=== PATIENT | male | born 1955 | race Caucasian/White ===

== ENCOUNTER 2019-01-21 09:08 | Inpatient (IN) | payer MEDICARE ==
[~2019-01-21] VITALS: Ht 170.2 cm; Wt 90.0 kg
[~2019-01-21 09:08] MED LIST: ALBU2.5V8 IH; AMIO200T4 PO; AMOX500C PO; ASPI-630 PO; ATOR20TA58 PO; AZIT1PAC PO; BUDE10.2 IH; CEFP200T PO; CHLO25TA9 PO; FURO40TA4 PO; IPRA3AMP29 IH; LISI-338 PO; MAGN400T22 PO; METO25TA4 PO; NICO1PAT2 TP; POTA20TA4 PO; PRED-220 PO; TAMS0.4C2 PO; TORS20TA PO; WARF3TAB50 PO; WARF6TAB PO; ZOLP10TA PO; ZOLP5TAB PO
[2019-01-21] MEDS ORDERED: ONDANSETRON ODT 4 MG TAB.RAPDIS PO PRN (09:30)
[2019-01-21] MEDS ORDERED: IV NORMAL SALINE 1,000ML 1,000 ML IV SCH (09:30)
[2019-01-21] MEDS ORDERED: ACETAMINOPHEN 325 MG TABLET PO PRN (09:30)
[2019-01-21 10:06] VITALS: BP 133/75
[2019-01-21 10:13] LABS: BASO % 0 % (0-3); EOS % 0 % (0-3); HEMATOCRIT 48.1 % (39.0-53.0); LYMPH # 0.8 x10^3/uL (1.0-4.8); LYMPH % 6 % (24-48); MEAN CORPUSCULAR HEMOGLOBIN 27 pg (25-35); MEAN CORPUSCULAR HGB CONC 33 g/dL (31-37); MEAN CORPUSCULAR VOLUME 81 fL (79-100); MONO # 1.3 x10^3/uL (0.0-1.1); MONO % 9 % (0-9); NEUT # 12.3 x10^3uL (1.8-7.7); NEUT % 85 % (31-73); PLATELET COUNT 165 x10^3/uL (140-400); RED BLOOD COUNT 5.92 x10^6/uL (4.30-5.70); RED CELL DISTRIBUTION WIDTH 16.1 % (11.5-14.5); WHITE BLOOD COUNT 14.4 x10^3/uL (4.0-11.0)
[2019-01-21 10:29] LABS: ALBUMIN 3.5 g/dL (3.4-5.0); ALBUMIN/GLOBULIN RATIO 0.8 (1.0-1.7); CALCIUM 9.4 mg/dL (8.5-10.1); CREATININE 1.2 mg/dL (0.7-1.3); GFR 60.8; POTASSIUM 3.4 mmol/L (3.5-5.1); TOTAL BILIRUBIN 1.7 mg/dL (0.2-1.0); TOTAL PROTEIN 7.7 g/dL (6.4-8.2)
--- NOTE | 2019-01-21 10:57 | NUR ---
NSG NOTE; ADMISSION DIRECT ADMIT TO ROOM 113 AT 1000 VIA W/C FROM DR DOMINGUEZ'S OFFICE PT STATES HE GOT OVER HEATED ON SAT AND SUN, AND FELT WEAK, TIRED AND WITH A VICK SINCE THEN. THE OFFICE SENT HIM FOR ADMISSION AFTER NOTING SINUS TACHYCARDIA AND AN ABN EKG
[2019-01-21 11:37] LABS: BACTERIA,URINE 0 /HPF (0-FEW); BILIRUBIN,URINE NEG (NEG); CLARITY,URINE CLOUDY; COLOR,URINE AMBER; GLUCOSE,URINE >=1000 mg/dL (NEG); GRANULAR CASTS,URINE OCC /HPF; NITRITE,URINE NEG (NEG); RBC,URINE >40 /HPF (0-2); SQUAMOUS EPITHELIAL CELL,UR OCC /LPF; UROBILINOGEN,URINE 1 mg/dL (0.2 mg/dL)
[2019-01-21] MEDS ORDERED: ZOLPIDEM 5 MG TABLET. PO PRN (12:30)
[2019-01-21] MEDS ORDERED: DEXTROSE 50% 25 GM / 50ML DISP.SYRIN. IV PRN (12:45)
[2019-01-21] MEDS ORDERED: GLYB5TAB3 PO (13:41)
[2019-01-21] MEDS ORDERED: TRAM50TA PO (13:41)
[2019-01-21] MEDS ORDERED: TAMS0.4C97 PO (13:41)
[2019-01-21] MEDS ORDERED: DULA0.75 SQ (13:41)
[2019-01-21] MEDS: IV NORMAL SALINE 1,000ML 1,000 ML IV SCH ×2 (14:06→22:30)
--- NOTE | 2019-01-21 14:27 | NUR ---
NSG NOTE; INR GOAL: 2.5-3.5 PT HAS MECH HEART VALVES X2 01/21/19 INR 1.8- DR DOMINGUEZ NOTIFIED AND [place] [facility] ORDER GIVEN
[2019-01-21 14:30] VITALS: BP 129/64
--- NOTE | 2019-01-21 14:37 | NUR ---
Pharmacy Warfarin Dosing Note S:Pharmacy consulted to assist with anticoagulation therapy started with target INR: 2.5 - 3.5 O:STEFFI CABRERA is a 63 year old M with Mechanical Mitral Valve LABS: Last INR: 1.8 Last HGB: 16 Last HCT: 48.1 Last PLT: 165 Last dose of 6 mg given on 01/21/19 prior to admin Previous Regimen: Vitamin K given: N Drug Interaction Changes: Same Interacting Drug Ongoing Drug Interactions: A:INR Below desired Range. Target Range for this patient is: 2.5 - 3.5 P: Warfarin dose: 6mg daily for now, will monitor based on INR. Bridge Therapy: Enoxaparin 1 mg/kg q12h Next INR due 01/22/19 @0600 Pharmacy anticoagulation service will continue to follow. FAREED CONTE [facility], 01/21/19 [id number]
--- NOTE | 2019-01-21 16:06 | EKG ---
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
[2019-01-21] MEDS ORDERED: INSULIN LISPRO 300 UNITS/3 ML INSULN.PEN. SQ SCH (17:00)
--- NOTE | 2019-01-21 17:02 | RAD ---
EXAM: CT Abdomen and Pelvis without IV contrast CLINICAL HISTORY: Hematuria. COMPARISON: 10/03/2015 TECHNIQUE: Helical CT of the abdomen and pelvis without intravenous contrast. Axial, coronal and sagittal reformatted images were generated. PQRS compliance statement - One or more of the following individualized dose reduction techniques were utilized for this study: 1. Automated exposure control 2. Adjustment of the mA and/or kV according to patient size 3. Use of iterative reconstruction technique FINDINGS: Lack of intravenous contrast limits evaluation of solid organs, vasculature, and lymph nodes. Lower chest: Linear opacities in the lower lobes likely scarring/atelectasis. Right lower lobe calcified granuloma. Mitral annular calcifications. Abdomen and Pelvis: Liver measures 21.3 cm in length. Hepatic hypoattenuation may be seen with hepatic steatosis. Calcified gallstones are seen within the gallbladder. No biliary duct dilatation. Pancreas is unremarkable. Spleen is top normal in size measuring 11.9 cm in length. Adrenal glands are normal. Fat infiltration is seen about the left kidney and left ureter. These findings may be seen with pyelonephritis. No renal tract, or bladder calculus. Bladder wall thickening may be seen with cystitis. Foci of gas within the bladder are seen, can be correlated for possible recent instrumentation. Nodular appearance of the upper pole of the left kidney may represent a renal lesion or be physiologic, evaluation limited on this noncontrast exam. Moderate colonic stool content is seen. Appendix is normal. No small or large bowel dilatation. Colonic diverticulosis without evidence for acute diverticulitis. No abdominal or pelvic lymphadenopathy. Atherosclerotic calcifications of aorta are seen. Small fat-containing periumbilical hernia. Bones: SI joint degenerative changes are seen. Lower lumbar spine degenerative changes are seen. IMPRESSION: 1. No definite renal tract calculus. 2. Diffuse fat infiltration about the left kidney and left ureter may be seen with pyelonephritis. 3. Bladder wall thickening may be seen with cystitis. Foci of gas within the bladder may represent prior instrumentation/Lyle catheter although may be seen with infection. 4. Mild nodularity of the upper pole the left kidney is seen, evaluation limited on this noncontrast exam and although may be physiologic lobulation, underlying lesion is not excluded. Ultrasound or multiphase CT would provide additional details. 5. Hepatomegaly and hepatic steatosis. 6. Cholelithiasis without CT evidence for acute cholecystitis. Electronically signed by: Juni Almeida MD (01/21/2019 4:58 PM) [facility]
--- NOTE | 2019-01-21 17:33 | PDOC2 ---
CONSULT Date of Admission DATE: 01/21/19 TIME: 17:33 Reason for Consult: Tachycardia Referring Physician: Dr. Thorne Chief Complaint Headache Source: Chart review, Patient History of Present Illness 63-year-old male with history of aortic and mitral valve replacements in 2014 and paroxysmal atrial fibrillation usually followed by [facility] cardiology apparently got over heated from being out in sun for two consecutive days. He was seen in Dr. Thorne's office for headache and was found to be tachycardic and admitted for further evaluation. He denied any chest pain, orthopnea/PND, palpitations or syncope. 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 Past Medical History Paroxysmal atrial fibrillation DM-2 Hypertension Hyperlipidemia COPD Anxiety/depression Past Surgical History Tonsillectomy Aortic and mitral valve replacements Family History Negative for premature coronary artery disease Social History Patient is a nonsmoker and a nondrinker Current Medications Current Medications Sodium Chloride 1,000 ml @ 120 mls/hr Q8H20M IV ; Start 01/21/19 at 09:30; Stop 01/21/19 at 12:24; Status DC Ondansetron HCl (Zofran Odt) 4 mg PRN Q6HRS PRN PO NAUSEA/VOMITING; Start 01/21/19 at 09:30 Acetaminophen (Tylenol) 650 mg PRN Q6HRS PRN PO PAIN / TEMP; Start 01/21/19 at 09:30 Aspirin (Children'S Aspirin) 81 mg DAILY PO ; Start 01/22/19 at 09:00 Chlorthalidone (Thalitone) 25 mg DAILY PO ; Start 01/22/19 at 09:00 Chlorthalidone (Thalitone) 25 mg DAILY PO ; Start 01/22/19 at 09:00; Stop 01/21/19 at 12:21; Status DC Magnesium Oxide (Magnesium Oxide) 400 mg DAILY PO ; Start 01/22/19 at 09:00 Metoprolol Tartrate (Lopressor) 12.5 mg BID PO ; Start 01/21/19 at 21:00 Potassium Chloride (Klor-Con) 20 meq BID PO ; Start 01/21/19 at 21:00 Warfarin Sodium (Coumadin) 6 mg DAILY16 PO ; Start 01/22/19 at 16:00 Zolpidem Tartrate (Ambien) 5 mg PRN QHS PRN PO INSOMNIA, MR X1 WITHIN 2HRS; Start 01/21/19 at 12:30 Sodium Chloride 1,000 ml @ 100 mls/hr Q10H IV Last administered on 01/21/19at 14:06; Start 01/21/19 at 12:30 Insulin Human Lispro (HumaLOG) 0-7 UNITS TIDWMEALS SQ ; Start 01/21/19 at 17:00 Dextrose (Dextrose 50%-Water Syringe) 12.5 gm PRN Q15MIN PRN IV SEE COMMENTS; Start 01/21/19 at 12:45 Enoxaparin Sodium (Lovenox 100mg Syringe) 90 mg Q12HR SQ ; Start 01/21/19 at 21:00 Warfarin Sodium (Coumadin Per Pharmacy) 1 each PRN DAILY PRN MC SEE COMMENTS Last administered on 01/21/19at 14:37; Start 01/21/19 at 14:45 Active Scripts Active Reported Trulicity (Dulaglutide) 0.75 Mg/0.5 Ml Pen.injctr 0.75 Mg SQ WEEKLYSUNDAY Flomax (Tamsulosin Hcl) 0.4 Mg Cap.er.24h 1 Tab PO HS Tramadol Hcl (Tramadol HCl) 50 Mg Tablet 1 Tab PO Q6HRS PRN Glyburide 5 Mg Tablet 1 Tab PO DAILY Aspirin 81 Mg Tab.chew 81 Mg PO DAILY Coumadin (Warfarin Sodium) 6 Mg Tablet 1 Tab PO DAILY Chlorthalidone (Chlorthalidone) 25 Mg Tablet 1 Tab PO DAILY Metoprolol Tartrate 25 Mg Tablet 12.5 Mg PO BID LAST DOSE GIVEN: DATE: TIME: NEXT DOSE DUE: DATE: TIME: Klor-Con M20 (Potassium Chloride) 20 Meq Tab.er.prt 1 Tab PO BID LAST DOSE GIVEN: DATE: TIME: NEXT DOSE DUE: DATE: TIME: Allergies: Coded Allergies: penicillin (Verified Allergy, Unknown, Hives, 04/01/15) hives & throat swells PSYCHOLOGICAL ROS: No: Hallucinations Eyes: No: Loss of vision HEENT: YES: Heacaches; No: Epistaxis Respiratory: No: Hemoptysis Cardiovascular: No: Chest Pain Gastrointestinal: No: Vomiting, Diarrhea Neurological: No: Seizures Skin: No: Rash General: Alert, Oriented X3 HEENT: Atraumatic, PERRLA Lungs: Clear to auscultation Heart: Regular rate, Other (tachycardic) Abdomen: Soft, No tenderness Extremities: No edema Psych/Mental Status: Mood NL VITALS Vital Signs Date Time Temp Pulse Resp B/P (MAP) Pulse Ox O2 Delivery O2 Flow Rate FiO2 01/21/19 14:30 98.1 115 20 129/64 (85) 93 Room Air Labs Laboratory Tests Test 01/21/19 10:06 01/21/19 11:00 01/21/19 11:47 01/21/19 12:57 White Blood Count 14.4 x10^3/uL (4.0-11.0) Red Blood Count 5.92 x10^6/uL (4.30-5.70) Hemoglobin 16.0 g/dL (13.0-17.5) Hematocrit 48.1 % (39.0-53.0) Mean Corpuscular Volume 81 fL (79-100) Mean Corpuscular Hemoglobin 27 pg (25-35) Mean Corpuscular Hemoglobin Concent 33 g/dL (31-37) Red Cell Distribution Width 16.1 % (11.5-14.5) Platelet Count 165 x10^3/uL (140-400) Neutrophils (%) (Auto) 85 % (31-73) Lymphocytes (%) (Auto) 6 % (24-48) Monocytes (%) (Auto) 9 % (0-9) Eosinophils (%) (Auto) 0 % (0-3) Basophils (%) (Auto) 0 % (0-3) Neutrophils # (Auto) 12.3 x10^3uL (1.8-7.7) Lymphocytes # (Auto) 0.8 x10^3/uL (1.0-4.8) Monocytes # (Auto) 1.3 x10^3/uL (0.0-1.1) Eosinophils # (Auto) 0.0 x10^3/uL (0.0-0.7) Basophils # (Auto) 0.0 x10^3/uL (0.0-0.2) Prothrombin Time 18.2 SEC (9.4-11.4) Prothromb Time International Ratio 1.8 (0.9-1.1) D-Dimer (Phoebe) 0.38 mg/L (0.00-0.50) Sodium Level 132 mmol/L (136-145) Potassium Level 3.4 mmol/L (3.5-5.1) Chloride Level 94 mmol/L (98-107) Carbon Dioxide Level 29 mmol/L (21-32) Anion Gap 9 (6-14) Blood Urea Nitrogen 18 mg/dL (8-26) Creatinine 1.2 mg/dL (0.7-1.3) Estimated GFR (Cockcroft-Gault) 60.8 BUN/Creatinine Ratio 15 (6-20) Glucose Level 272 mg/dL (70-99) Calcium Level 9.4 mg/dL (8.5-10.1) Total Bilirubin 1.7 mg/dL (0.2-1.0) Aspartate Amino Transf (AST/SGOT) 16 U/L (15-37) Alanine Aminotransferase (ALT/SGPT) 27 U/L (16-63) Alkaline Phosphatase 67 U/L (46-116) Creatine Kinase 38 U/L (39-308) Troponin I Quantitative < 0.017 ng/mL (0-0.055) < 0.017 ng/mL (0-0.055) Total Protein 7.7 g/dL (6.4-8.2) Albumin 3.5 g/dL (3.4-5.0) Albumin/Globulin Ratio 0.8 (1.0-1.7) Urine Collection Type Unknown Urine Color Arielle Urine Clarity Cloudy Urine pH 6.5 Urine Specific [place] 1.010 Urine Protein 100 mg/dl (NEG-TRACE) Urine Glucose (UA) >=1000 mg/dL (NEG) Urine Ketones (Stick) Neg mg/dL (NEG) Urine Blood Large (NEG) Urine Nitrite Neg (NEG) Urine Bilirubin Neg (NEG) Urine Urobilinogen Dipstick 1 mg/dL (0.2 mg/dL) Urine Leukocyte Esterase Neg (NEG) Urine RBC >40 /HPF (0-2) Urine WBC 1-4 /HPF (0-4) Urine Squamous Epithelial Cells Occ /LPF Urine Bacteria 0 /HPF (0-FEW) Urine Granular Casts Occ /HPF Glucose (Fingerstick) 239 mg/dL (70-99) Test 01/21/19 16:25 01/21/19 16:59 Troponin I Quantitative < 0.017 ng/mL (0-0.055) Glucose (Fingerstick) 132 mg/dL (70-99) Assessment/Plan 1. Sinus tachycardia most probably secondary to dehydration and hyperthermia on admission. Continue intravenous fluids. Check 2-D echo for further evaluation. Continue beta blockers. 2. s/p aortic and mitral valve replacements, most probably mechanical. Check 2- D echo for valve function. 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 3. Paroxysmal atrial fibrillation, s/p cardioversion in the past. He is presently in sinus rhythm. Adjust warfarin dose for therapeutic INR. 4. Hypertension: Controlled 5. Diabetes mellitus type 2: Treat per IM Thank you for your consultation RALEIGH MCLAIN MD Jan 21, 2019 17:33
[2019-01-21 19:23] VITALS: BP 148/70
[2019-01-21] MEDS: INSULIN LISPRO 300 UNITS/3 ML INSULN.PEN. SQ SCH (21:00)
[2019-01-21] MEDS: METOPROLOL TART IMMED RELEASE 25 MG TABLET PO SCH (21:15)
[2019-01-21] MEDS: ENOXAPARIN ** NOTE DOSE ** SYRINGE SQ SCH (21:15)
[2019-01-21] MEDS: POTASSIUM CHLORIDE 20 MEQ TABLET.ER. PO SCH (21:18)
--- NOTE | 2019-01-21 22:03 | RAD ---
CT head without contrast PQRS statement: CT scans at this facility use dose reduction including either automated exposure control, iterative reconstructions, and /or weight based radiation dosing via mA and kV modification when appropriate to reduce radiation dose to as low as reasonably achievable. HISTORY: Headache. TECHNIQUE: Noncontrast CT imaging of the head skull base to vertex acquired. FINDINGS: Mild generalized brain atrophy. No intracranial hemorrhage, mass, hydrocephalus, extra-axial fluid collections or infarction. No acute ischemic changes. Orbits, mastoids, paranasal sinuses and bones are unremarkable. IMPRESSION: No acute intracranial CT abnormality. Electronically signed by: Ryan Whitmore MD (01/21/2019 10:00 PM) [facility]
[2019-01-21 23:29] VITALS: BP 104/64
[2019-01-22] MEDS: IV NORMAL SALINE 1,000ML 1,000 ML IV SCH ×3 (00:47→18:30)
[2019-01-22 05:39] VITALS: BP 138/66
[2019-01-22 06:40] LABS: CALCIUM 8.6 mg/dL (8.5-10.1); CREATININE 0.8 mg/dL (0.7-1.3); POTASSIUM 3.1 mmol/L (3.5-5.1)
[2019-01-22 06:48] LABS: BASO # 0.1 x10^3/uL (0.0-0.2); BASO % 1 % (0-3); EOS # 0.1 x10^3/uL (0.0-0.7); EOS % 1 % (0-3); HEMATOCRIT 43.2 % (39.0-53.0); HEMOGLOBIN 14.8 g/dL (13.0-17.5); LYMPH % 9 % (24-48); MEAN CORPUSCULAR HEMOGLOBIN 27 pg (25-35); MEAN CORPUSCULAR HGB CONC 34 g/dL (31-37); MEAN CORPUSCULAR VOLUME 80 fL (79-100); MONO # 1.3 x10^3/uL (0.0-1.1); MONO % 12 % (0-9); NEUT # 8.3 x10^3uL (1.8-7.7); NEUT % 78 % (31-73); PLATELET COUNT 153 x10^3/uL (140-400); RED BLOOD COUNT 5.39 x10^6/uL (4.30-5.70); RED CELL DISTRIBUTION WIDTH 15.8 % (11.5-14.5); WHITE BLOOD COUNT 10.7 x10^3/uL (4.0-11.0)
[2019-01-22] MEDS: INSULIN LISPRO 300 UNITS/3 ML INSULN.PEN. SQ SCH ×4 (07:30→21:00)
[2019-01-22] MEDS ORDERED: CHLORTHALIDONE 25 MG TABLET PO SCH (09:00)
[2019-01-22] MEDS: CHLORTHALIDONE 25 MG TABLET PO SCH (09:00)
[2019-01-22] MEDS: ENOXAPARIN ** NOTE DOSE ** SYRINGE SQ SCH ×2 (09:00→21:00)
[2019-01-22] MEDS: MAGNESIUM OXIDE 400 MG TABLET PO SCH (09:00)
[2019-01-22] MEDS: ASPIRIN 81 MG TAB.CHEW PO SCH (09:00)
[2019-01-22] MEDS: METOPROLOL TART IMMED RELEASE 25 MG TABLET PO SCH ×2 (09:00→21:44)
[2019-01-22] MEDS: POTASSIUM CHLORIDE 20 MEQ TABLET.ER. PO SCH ×2 (09:00→21:44)
[2019-01-22] MEDS ORDERED: ELECTROLYTE (ICU) PROTOCOL. MC PRN (09:00)
--- NOTE | 2019-01-22 09:29 | RAD ---
Chest, PA and Lateral: Technique: PA and lateral views of the chest were obtained. History: Weakness. Comparison: 08/16/2015. Findings: Mild cardiomegaly. Median sternotomy wires and valve prosthesis and atrial occlusion device are unchanged. Diffuse prominent appearing bilateral interstitial lung markings likely chronic interstitial changes. Mild bibasilar lung airspace opacities. Moderate degenerative changes thoracic spine. Impression: Diffuse prominent bilateral interstitial lung markings likely chronic interstitial changes similar to prior exam. Mild bibasilar lung airspace opacities likely atelectasis or infiltrates. Electronically signed by: Brodie Padgett MD (01/22/2019 9:26 AM) [facility]
[2019-01-22 10:45] VITALS: BP 146/77
[2019-01-22] MEDS ORDERED: POTASSIUM CHLORIDE 20 MEQ TABLET.ER. PO ONE (11:30)
[2019-01-22] MEDS: GENTAMICIN SULFATE 380 MG in IV NORMAL SALINE 100ML 100 ML IV SCH (11:35)
[2019-01-22] MEDS: GENTAMICIN PER PHARMACY MC PRN (13:24)
--- NOTE | 2019-01-22 13:24 | NUR ---
Pharmacy Aminoglycoside Dosing Note S: Consulted to monitor and dose Gentamicin started 01/22/19 O:STEFFI CABRERA is a 63 year old M with Pyelonephritis Height: 5 feet, 7 inches Weight: 91.715062 kg [place] Weight: 66.10 Adjusted Weight: 76.22 Dosing Weight:Adjusted LABS: BUN: 14 SCr:0.8 CrCl: 79.4 WBC: 10.7 Platelet: 153 Last dose given 01/22/19 at 1130 A: Dosage was calculated based on adjusted weight at 5mg/kg. P: 1. Begin Gentamicin 380mg IV q24h 2. Follow up random levels on 01/22/19 at 1930 3. Pharmacy will continue to monitor, follow and adjust therapy as needed. BANDAR MIRANDA [facility] 01/22/19 2520
--- NOTE | 2019-01-22 14:09 | NUR ---
Pharmacy Warfarin Dosing Note S:Pharmacy consulted to assist with anticoagulation therapy started with target INR: 2.5 - 3.5 O:STEFFI CABRERA is a 63 year old M with Mechanical Mitral Valve LABS: Last INR: 1.7 Last HGB: 16 Last HCT: 48.1 Last PLT: 153 Last dose of 6 mg given on 01/21/19 at 1600 Previous Regimen: Home dose was 6mg daily Vitamin K given: N Drug Interaction Changes: Levaquin A:INR is below the desired range. Target Range for this patient is: 2.5 - 3.5 P: Warfarin dose: Coumadin 10mg po today at 1600 Bridge Therapy: Enoxaparin 1 mg/kg q12h Next INR due 01/23/19 Pharmacy anticoagulation service will continue to follow. BANDAR MIRANDA [facility] 01/22/19 7910
[2019-01-22 15:39] VITALS: BP 121/72
[2019-01-22] MEDS ORDERED: WARFARIN 6 MG TABLET. PO SCH (16:00)
[2019-01-22] MEDS ORDERED: WARFARIN 10 MG TABLET. PO ONE (16:00)
[2019-01-22 19:25] VITALS: BP 133/68
[2019-01-22] MEDS ORDERED: GENTAMICIN RANDOM LEVEL. MC ONE (19:30)
[2019-01-22] MEDS: LACTOBACILLUS RHAMNOSUS GG 1 CAPSULE. PO SCH (21:44)
[2019-01-22 23:06] VITALS: BP 124/74
[2019-01-23 00:07] LABS: HEMOGLOBIN A1C 7.1 % (4.8-5.6)
[2019-01-23] MEDS: IV NORMAL SALINE 1,000ML 1,000 ML IV SCH (02:06)
--- NOTE | 2019-01-23 05:41 | PN ---
DATE: 01/22/2019 SUBJECTIVE: A 63-year-old male in with fever, chills, elevated white count, although he had a negative lactic acid. He did have a lot of blood in his urine and a CT scan of the abdomen and pelvis demonstrated a situation of bladder wall thickening as well as possible pyelonephritis. The patient says he is feeling a little better. The patient otherwise will continue on Levaquin and Rocephin and we will await for culture reports to be returned. OBJECTIVE: VITAL SIGNS: Blood pressure 138/66, respiratory rate 18, pulse 113, temperature upwards of 100.1. LUNGS: Clear. CARDIOVASCULAR: Stable. ABDOMEN: Soft. There is definite tenderness in the left flank area and down the left ureter. IMPRESSION: Pyelonephritis and cystitis. He has a history of heart valve replacement and we will continue to monitor him accordingly. PLAN: We will go ahead and continue to monitor him and put him on some IV antibiotics until we can get the culture back. CANDIDO DOMINGUEZ MD DR: ARABELLA/john JOB#: [id number] / [id number]
[2019-01-23 06:15] VITALS: BP 122/80
[2019-01-23] MEDS: INSULIN LISPRO 300 UNITS/3 ML INSULN.PEN. SQ SCH ×2 (07:30→11:30)
[2019-01-23] MEDS ORDERED: ELECTROLYTE (NON-ICU) PROTOCOL MC PRN (09:15)
[2019-01-23] MEDS ORDERED: POTASSIUM CHLORIDE 20 MEQ TABLET.ER. PO ONE (09:30)
[2019-01-23] MEDS: ENOXAPARIN ** NOTE DOSE ** SYRINGE SQ SCH (09:36)
[2019-01-23] MEDS: LACTOBACILLUS RHAMNOSUS GG 1 CAPSULE. PO SCH (09:36)
[2019-01-23] MEDS: ASPIRIN 81 MG TAB.CHEW PO SCH (09:37)
[2019-01-23] MEDS: METOPROLOL TART IMMED RELEASE 25 MG TABLET PO SCH (09:37)
[2019-01-23] MEDS: POTASSIUM CHLORIDE 20 MEQ TABLET.ER. PO SCH (09:38)
[2019-01-23] MEDS: MAGNESIUM OXIDE 400 MG TABLET PO SCH (09:38)
[2019-01-23] MEDS: CHLORTHALIDONE 25 MG TABLET PO SCH (09:38)
[2019-01-23] MEDS ORDERED: LEVO750T31 PO (09:43)
[2019-01-23] MEDS ORDERED: MAGN400T22 PO (09:43)
[2019-01-23] MEDS ORDERED: LACT1CAP19 PO (09:43)
--- NOTE | 2019-01-23 10:04 | PDOC ---
CARDIO Progress Notes Date & Time Date of Service DATE: 01/23/19 TIME: 10:01 Time of Evaluation 10:01 Subjective Notes No palpitations, dizziness, diaphoresis, or chest pain. Ready to go home. Vitals Vitals Vital Signs Date Time Temp Pulse Resp B/P (MAP) Pulse Ox O2 Delivery O2 Flow Rate FiO2 01/23/19 09:49 112 117/65 01/23/19 06:15 98.0 20 98 Room Air Weight Weight [ ] Input and Output I.O. Intake and Output 01/23/19 07:00 Intake Total 1800 ml Balance 1800 ml Intake Oral 1800 ml # Voids 4 # Bowel Movements 2 Laboratory Labs Laboratory Tests Test 01/21/19 10:06 01/21/19 11:00 01/21/19 11:47 01/21/19 12:57 White Blood Count 14.4 x10^3/uL (4.0-11.0) Red Blood Count 5.92 x10^6/uL (4.30-5.70) Hemoglobin 16.0 g/dL (13.0-17.5) Hematocrit 48.1 % (39.0-53.0) Mean Corpuscular Volume 81 fL (79-100) Mean Corpuscular Hemoglobin 27 pg (25-35) Mean Corpuscular Hemoglobin Concent 33 g/dL (31-37) Red Cell Distribution Width 16.1 % (11.5-14.5) Platelet Count 165 x10^3/uL (140-400) Neutrophils (%) (Auto) 85 % (31-73) Lymphocytes (%) (Auto) 6 % (24-48) Monocytes (%) (Auto) 9 % (0-9) Eosinophils (%) (Auto) 0 % (0-3) Basophils (%) (Auto) 0 % (0-3) Neutrophils # (Auto) 12.3 x10^3uL (1.8-7.7) Lymphocytes # (Auto) 0.8 x10^3/uL (1.0-4.8) Monocytes # (Auto) 1.3 x10^3/uL (0.0-1.1) Eosinophils # (Auto) 0.0 x10^3/uL (0.0-0.7) Basophils # (Auto) 0.0 x10^3/uL (0.0-0.2) Prothrombin Time 18.2 SEC (9.4-11.4) Prothromb Time International Ratio 1.8 (0.9-1.1) D-Dimer (Phoebe) 0.38 mg/L (0.00-0.50) Sodium Level 132 mmol/L (136-145) Potassium Level 3.4 mmol/L (3.5-5.1) Chloride Level 94 mmol/L (98-107) Carbon Dioxide Level 29 mmol/L (21-32) Anion Gap 9 (6-14) Blood Urea Nitrogen 18 mg/dL (8-26) Creatinine 1.2 mg/dL (0.7-1.3) Estimated GFR (Cockcroft-Gault) 60.8 BUN/Creatinine Ratio 15 (6-20) Glucose Level 272 mg/dL (70-99) Calcium Level 9.4 mg/dL (8.5-10.1) Total Bilirubin 1.7 mg/dL (0.2-1.0) Aspartate Amino Transf (AST/SGOT) 16 U/L (15-37) Alanine Aminotransferase (ALT/SGPT) 27 U/L (16-63) Alkaline Phosphatase 67 U/L (46-116) Creatine Kinase 38 U/L (39-308) Troponin I Quantitative < 0.017 ng/mL (0-0.055) < 0.017 ng/mL (0-0.055) Total Protein 7.7 g/dL (6.4-8.2) Albumin 3.5 g/dL (3.4-5.0) Albumin/Globulin Ratio 0.8 (1.0-1.7) Urine Collection Type Unknown Urine Color Arielle Urine Clarity Cloudy Urine pH 6.5 Urine Specific [place] 1.010 Urine Protein 100 mg/dl (NEG-TRACE) Urine Glucose (UA) >=1000 mg/dL (NEG) Urine Ketones (Stick) Neg mg/dL (NEG) Urine Blood Large (NEG) Urine Nitrite Neg (NEG) Urine Bilirubin Neg (NEG) Urine Urobilinogen Dipstick 1 mg/dL (0.2 mg/dL) Urine Leukocyte Esterase Neg (NEG) Urine RBC >40 /HPF (0-2) Urine WBC 1-4 /HPF (0-4) Urine Squamous Epithelial Cells Occ /LPF Urine Bacteria 0 /HPF (0-FEW) Urine Granular Casts Occ /HPF Glucose (Fingerstick) 239 mg/dL (70-99) Test 01/21/19 16:25 01/21/19 16:59 01/21/19 19:57 01/21/19 20:05 Troponin I Quantitative < 0.017 ng/mL (0-0.055) Glucose (Fingerstick) 132 mg/dL (70-99) 279 mg/dL (70-99) Lactic Acid Level 1.2 mmol/L (0.4-2.0) Test 01/22/19 05:53 01/22/19 07:29 01/22/19 11:22 01/22/19 16:30 White Blood Count 10.7 x10^3/uL (4.0-11.0) Red Blood Count 5.39 x10^6/uL (4.30-5.70) Hemoglobin 14.8 g/dL (13.0-17.5) Hematocrit 43.2 % (39.0-53.0) Mean Corpuscular Volume 80 fL (79-100) Mean Corpuscular Hemoglobin 27 pg (25-35) Mean Corpuscular Hemoglobin Concent 34 g/dL (31-37) Red Cell Distribution Width 15.8 % (11.5-14.5) Platelet Count 153 x10^3/uL (140-400) Neutrophils (%) (Auto) 78 % (31-73) Lymphocytes (%) (Auto) 9 % (24-48) Monocytes (%) (Auto) 12 % (0-9) Eosinophils (%) (Auto) 1 % (0-3) Basophils (%) (Auto) 1 % (0-3) Neutrophils # (Auto) 8.3 x10^3uL (1.8-7.7) Lymphocytes # (Auto) 1.0 x10^3/uL (1.0-4.8) Monocytes # (Auto) 1.3 x10^3/uL (0.0-1.1) Eosinophils # (Auto) 0.1 x10^3/uL (0.0-0.7) Basophils # (Auto) 0.1 x10^3/uL (0.0-0.2) Prothrombin Time 18.1 SEC (9.4-11.4) Prothromb Time International Ratio 1.7 (0.9-1.1) Sodium Level 133 mmol/L (136-145) Potassium Level 3.1 mmol/L (3.5-5.1) Chloride Level 98 mmol/L (98-107) Carbon Dioxide Level 28 mmol/L (21-32) Anion Gap 7 (6-14) Blood Urea Nitrogen 14 mg/dL (8-26) Creatinine 0.8 mg/dL (0.7-1.3) Estimated GFR (Cockcroft-Gault) 97.0 Glucose Level 169 mg/dL (70-99) Hemoglobin A1c 7.1 % (4.8-5.6) Calcium Level 8.6 mg/dL (8.5-10.1) Triglycerides Level 128 mg/dL (0-150) Cholesterol Level 156 mg/dL (0-200) LDL Cholesterol, Calculated 103 mg/dL (0-100) VLDL Cholesterol, Calculated 25 mg/dL (0-40) Non-HDL Cholesterol Calculated 128 mg/dL (0-129) HDL Cholesterol 28 mg/dL (40-60) Cholesterol/HDL Ratio 5.0 Glucose (Fingerstick) 168 mg/dL (70-99) 175 mg/dL (70-99) 163 mg/dL (70-99) Test 01/22/19 20:51 01/23/19 05:57 01/23/19 07:47 Glucose (Fingerstick) 158 mg/dL (70-99) 138 mg/dL (70-99) Prothrombin Time 21.6 SEC (9.4-11.4) Prothromb Time International Ratio 2.1 (0.9-1.1) Microbiology Micro Microbiology 01/21/19 Blood Culture - Preliminary, Resulted NO GROWTH AFTER 1 DAY... Physical Exams HEENT: Neck Supple W Full Motion Chest: Symmetric Lungs: Clear to Auscultation Heart: S1S2, RRR Abdomen: Soft N/T Extremities: No Edema Neurology: alert, oriented, follow commands Assessment Assessment 1. Sinus tachycardia most probably secondary to dehydration. Improved with IVFs. Check 2-D echo for further evaluation. Continue metoprolol for rate control. Consider increasing. Follow up with [facility] cardiology upon discharge. 2. S/p aortic and mitral valve replacements, most probably mechanical. Check 2- D echo for valve function. Follows with [facility]. 3. Paroxysmal atrial fibrillation, s/p cardioversion in the past. Maintaining SR. On warfarin for stroke prevention. INR 2.1 4. Hypertension: Controlled 5. Diabetes mellitus type 2: Treat per EILNOR BERNARD APRN Jan 23, 2019 10:04
[2019-01-23 10:38] VITALS: BP 132/75
--- NOTE | 2019-01-23 11:07 | CARD ---
MR#: [id number] Date of Study: 01/21/2019 Ordering Physician: INOCENTE CARDONA, Referring Physician: CANDIDO DOMINGUEZ, Tech: Janny Moreno RDCS APPROVED REPORT EXAM: Two-dimensional and M-mode echocardiogram with Doppler and color Doppler. Other Information Quality : Good INDICATION Abnormal ECG Surgery/Intervention Status/Post Aortic Valve Replacement: Mechanical Date: 2014 Status/Post Mitral Valve Replacement: Mechanical Date: 2014 2D DIMENSIONS RVDd3.7 (2.9-3.5cm)Left Atrium(2D)4.4 (1.6-4.0cm) IVSd1.2 (0.7-1.1cm)Aortic Root(2D)2.9 (2.0-3.7cm) LVDd4.2 (3.9-5.9cm)LVOT Diameter2.0 (1.8-2.4cm) PWd1.0 (0.7-1.1cm)LVDs2.6 (2.5-4.0cm) FS (%) 30.0 %LVEF(%)60.0 (>50%) Aortic Valve AoV Peak Steven.236.0cm/sAoV VTI33.1cm AO Peak GR.14.6mmHgLVOT Peak Steven.146.0cm/s LVOT VTI 19.70cmAVA (VTI)1.90cm2 Mitral Valve MV E Mbpgakmp014.0cm/sMV E Peak Gr.13mmHg MV A Npvuahle719.0cm/sMV E Mean Gr.9mmHg E/A Ratio0.9MVA (PHT)2.15cm2 Tricuspid Valve TR P. Pqrqtuah318ze/sRAP [id number] TR Peak Gr.84jfQkNMKF12ytFl LEFT VENTRICLE The left ventricle is normal size. There is normal left ventricular wall thickness. The left ventricu lar systolic function is normal and the ejection fraction is within normal range. The Ejection Fracti on is 55-60%. There is normal LV segmental wall motion. Transmitral Doppler flow pattern is Grade I-a bnormal relaxation pattern. RIGHT VENTRICLE The right ventricle is normal size. The right ventricular systolic function is normal. ATRIA The left atrium is mildly dilated. The right atrium size is normal. The interatrial septum is intact with no evidence for an atrial septal defect or patent foramen ovale as noted on 2-D or Doppler imagi ng. AORTIC VALVE Doppler and Color Flow revealed trace aortic regurgitation. Calculated aortic valve area is 1.9 cm2 w ith maximum pressure gradient of 22 mmHg and mean pressure gradient of 15 mmHg. There is a mechanical aortic valve prosthesis. The prosthetic aortic valve is not well visualized. MITRAL VALVE Calculated mitral valve area is 2.15 cm2 with maximum pressure gradient of 13 mmHg and mean pressure gradient of 9 mmHg. Doppler and Color Flow revealed trace mitral valve regurgitation. There is a mech anical mitral valve noted but not well visualized. TRICUSPID VALVE The tricuspid valve is normal in structure and function. Doppler and Color Flow revealed mild tricusp id regurgitation. The PA pressure was estimated at 44 mmHg. There is no tricuspid valve stenosis. PULMONIC VALVE The pulmonic valve is not well visualized. Doppler and Color Flow revealed trace pulmonic valvular re gurgitation. There is no pulmonic valvular stenosis. GREAT VESSELS The aortic root is normal in size. The ascending aorta is mildly dilated at 3.8 cm. The IVC is normal in size and collapses >50% with inspiration. PERICARDIAL EFFUSION There is no evidence of significant pericardial effusion. Critical Notification Critical Value: No <Conclusion> The left ventricle is normal size. The left ventricular systolic function is normal and the ejection fraction is within normal range. The Ejection Fraction is 55-60%. There is a mechanical aortic valve prosthesis. The prosthetic aortic valve is not well visualized. Calculated aortic valve area is 1.9 cm2 with maximum pressure gradient of 22 mmHg and mean pressure g radient of 15 mmHg. Doppler and Color Flow revealed trace aortic regurgitation. There is a mechanical mitral valve noted but not well visualized. Calculated mitral valve area is 2.15 cm2 with maximum pressure gradient of 13 mmHg and mean pressure gradient of 9 mmHg. Doppler and Color Flow revealed trace mitral valve regurgitation. The ascending aorta is mildly dilated at 3.8 cm. Signed by : Hayden Mays MD Electronically Approved : 01/23/2019 11:07:30
[2019-01-23] MEDS: GENTAMICIN SULFATE 380 MG in IV NORMAL SALINE 100ML 100 ML IV SCH (11:23)
[2019-01-23] MEDS: GENTAMICIN PER PHARMACY MC PRN (13:30)
--- NOTE | 2019-01-23 13:30 | NUR ---
Pharmacy Aminoglycoside Dosing Note S: Consulted to monitor and dose Gentamicin started 01/22/19 O:STEFFI CABRERA is a 63 year old M with Pyelonephritis Height: 5 feet, 7 inches Weight: 90.116627 kg [place] Weight: 66.10 Adjusted Weight: 76.22 Dosing Weight:Adjusted Other Antibiotics: LEVAQUIN LABS: BUN: 14 SCr:0.8 CrCl: 79.4 WBC: 10.7 Platelet: 153 Drug Levels: Last Random Level: 1.5 on 01/22/19 at 2130 Last dose given 01/22/19 at 1130 A: Based on the nomogram, continue current dose and frequency. P: 1. Continue Gentamicin 380mg IV q24h 2. Follow up random level in 5-7 days or as indicated. 3. Pharmacy will continue to monitor, follow and adjust therapy as needed. BANDAR MIRANDA Sushila 01/23/19 1040
--- NOTE | 2019-01-23 13:38 | NUR ---
Pharmacy Warfarin Dosing Note S:Pharmacy consulted to assist with anticoagulation therapy started with target INR: 2.5 - 3.5 O:STEFFI CABRERA is a 63 year old M with Mechanical Mitral Valve LABS: Last INR: 2.1 Last HGB: 16 Last HCT: 48.1 Last PLT: 153 Last dose of 10 mg given on 01/22/19 at 1600 Previous Regimen: Vitamin K given: N Drug Interaction Changes: Same Interacting Drug Ongoing Drug Interactions: A:INR is below the desired range. Target Range for this patient is: 2.5 - 3.5 P: Warfarin dose: Give Coumadin 10mg po today at 1600 Bridge Therapy: Enoxaparin 1 mg/kg q12h Next INR due 01/24/19 Pharmacy anticoagulation service will continue to follow. BANDAR MIRANDA [facility] 01/23/19 2309
--- NOTE | 2019-01-23 14:39 | NUR ---
Pt discharged to home, ambulated from unit independently. PIV removed p/t discharge, significant bleeding, pressure, gauze and Coban applied, bleeding stopped. No reports of pain. Pt had all belongings with him. All discharge documentation reviewed and pt able to ask questions. Prescriptions called into [facility]. Christopher Addison RN
[2019-01-23] MEDS ORDERED: WARFARIN 10 MG TABLET. PO ONE (16:00)
--- NOTE | 2019-02-02 14:59 | DS ---
DATE OF DISCHARGE: 01/23/2019 HOSPITAL COURSE: The patient came in with blood in his urine. The patient's CT scan demonstrated problems with the left ureter and possible pyelonephritis. The patient was admitted, placed on IV antibiotic therapy. He made excellent progress during the rest of his hospitalization. There were no complications noted, and as a result of that, the patient was discharged home. See MRAD. Continue on home medications and antibiotics. Follow up as an outpatient. Although the blood culture did show Staph aureus and was treated with appropriate antibiotics and make further evaluation as an outpatient. Chest x-ray, chronic interstitial markings. Head CT unremarkable. CT abdomen and pelvis as indicated. Bladder wall thickening consistent with cystitis and some inflammation of the left ureter. Be on regular diet, decreased activity, and follow up accordingly. CANDIDO DOMINGUEZ MD DR: ARABELLA/john JOB#: [id number] / [id number]
== END 2019-01-23 14:40 | disposition home or self-care (01) | DRG 872 ==
LOC: 1 SOUTH 09:43
PROVIDERS: ADMIT Family Medicine; ATTEND Family Medicine
DX: A41.9 Sepsis, unspecified organism (principal); N12 Tubulo-interstitial nephritis, not specified as acute or chronic; E86.0 Dehydration; N30.91 Cystitis, unspecified with hematuria; I48.0 Paroxysmal atrial fibrillation; E11.9 Type 2 diabetes mellitus without complications; E78.5 Hyperlipidemia, unspecified; I10 Essential (primary) hypertension; F32.9 Major depressive disorder, single episode, unspecified; F41.9 Anxiety disorder, unspecified; Z95.2 Presence of prosthetic heart valve; J44.9 Chronic obstructive pulmonary disease, unspecified
CPT/HCPCS: 36415; 70450; 71046; 74176; 80048; 80053; 80061; 80170; 81001; 82550; 82947; 83036; 83605; 84484; 85025; 85379; 85610; 87040; 87077; 87086; 87205; 93306; J1580; J1650; J1815; J1956; J7030